=== PATIENT | female | born 1935 | race Caucasian/White ===

== ENCOUNTER 2018-08-10 11:32 | Emergency (ER) | payer MEDICARE ==
[~2018-08-10] VITALS: Ht 170.1 cm; Wt 83.9 kg
[~2018-08-10 11:32] MED LIST: ACULAR 3ML 3 ML5 ML OPH; ASPIRIN81 M1 PO; ATIVAN0.5 MG PO; CEFTIN500 M1 PO; CIPRO500 MG PO; CLINDAMYCIN HC300 MG PO; COMPAZINE10 MG PO; EVISTA60 MG PO; LISINOPRIL10 MG PO; LOPRESSOR50 M1 PO; LOVASTATIN40 MG PO; MACROBID100 M1 PO; OCUFLOX 5 ML5 M1 OPH; ONDANSETRON H2 MG/ML IV; PERCOCET 325 MG1 TA2 PO; PERCOCET 325 MG1 TA5 PO; PERCOCET 325 MG1 TA7 PO; PHENERGAN25 M1 PO; PLAVIX75 MG PO; PRED FORTE 5 ML5 ML OPH; PRESERVISION1 SGL PO; PRILOSEC20 M1 PO; PRINIVIL5 M1 PO; PROTONIX40 MG PO; ZOLOFT25 MG PO
[2018-08-10 12:03] LABS: BASO % 0.4 % (0.0-1.0); EOS % 0.4 % (1.0-4.0); HEMATOCRIT 41.4 % (37.0-47.0); HEMOGLOBIN 13.1 g/dl (12.0-16.0); LYMPH # 1.5 10*3/uL (1.3-4.4); MEAN CELL VOLUME 95.2 fl (81.0-99.0); MEAN CORPUSCULAR HGB 30.1 pg (27.0-31.0); MEAN CORPUSCULAR HGB CONC 31.6 g/dl (33.0-37.0); MEAN PLATELET VOLUME 9.9 fl (9.6-12.3); MONO # 0.5 10*3/uL (0.1-1.0); MONO % 7.1 % (3.0-9.0); NEUT # 4.7 10*3/uL (2.3-7.9); NEUT % 69.7 % (47.0-73.0); PLATELET COUNT AUTOMATED 180 10*3/uL (130-400); RED BLOOD COUNT 4.35 10*6/uL (4.10-5.10); RED CELL DISTRI WIDTH 12.8 % (0-14.5); WHITE BLOOD COUNT 6.7 10*3/uL (4.8-10.8)
[2018-08-10 12:18] LABS: ALBUMIN 3.4 gm/dl (3.1-4.5); CREATININE 1.83 mg/dL (0.55-1.02); POTASSIUM 3.6 mmol/L (3.5-5.1); TOTAL PROTEIN 7.3 gm/dL (6.4-8.2)
[2018-08-10 13:54] LABS: BILIRUBIN NEGATIVE (NEGATIVE); BLOOD NEGATIVE (NEGATIVE); CLARITY CLEAR (CLEAR); COLOR YELLOW (YELLOW); GLUCOSE NEGATIVE (NEGATIVE); KETONE NEGATIVE (NEGATIVE); LEUKO ESTERASE 1+ (NEGATIVE); NITRITE NEGATIVE (NEGATIVE); SPECIFIC GRAVITY <= 1.005 (1.005-1.030); UROBILINOGEN 0.2 E.U./dl (0.2-1.0)
[2018-08-10 14:13] LABS: BACTERIA 2+; RBC 0-2 rbc/hpf (0-2)
[2018-08-10 15:06] VITALS: BP 155/78
[2018-08-10] MEDS ORDERED: MACROBID100 M1 PO (16:10)
[2018-08-10] MEDS ORDERED: ZOFRAN4 MG PO (16:13)
[2018-10-15] MEDS ORDERED: FOSAMAX70 M1 PO (09:13)
[2018-10-15] MEDS ORDERED: BENADRYL25 M2 PO (09:17)
[2018-10-15] MEDS ORDERED: HEMMOREX-HC25 MG R (09:17)
[2018-10-15] MEDS ORDERED: NORCO 5-325 TA1 EACH PO (09:18)
[2018-10-15] MEDS ORDERED: TUMS200 MG PO (09:19)
[2018-10-15] MEDS ORDERED: TYLENOL325 M1 PO (09:20)
== END 2018-08-10 16:17 ==
LOC: ED 11:32
PROVIDERS: Emergency Medicine
DX: N39.0 Urinary tract infection, site not specified (principal); M19.90 Unspecified osteoarthritis, unspecified site; Z88.0 Allergy status to penicillin; Z91.040 Latex allergy status; Z88.2 Allergy status to sulfonamides; Z88.6 Allergy status to analgesic agent; Z88.4 Allergy status to anesthetic agent; Z79.899 Other long term (current) drug therapy; Z79.82 Long term (current) use of aspirin; Z87.440 Personal history of urinary (tract) infections

== ENCOUNTER 2018-08-27 14:20 | Inpatient (IN) | payer MEDICARE ==
[~2018-08-27] VITALS: Ht 167.6 cm; Wt 85.3 kg
--- NOTE | ~2018-08-27 | WRIGHTHP ---
[place], [place] PATIENT HISTORY AND PHYSICAL EXAM NAME: [facility]INO [facility] [id number] UNIT #: [id number] ROOM: [facility] DOCTOR: HARVEY LENNON MD BIRTHDATE: [birth year] DOS: 08/27/2018 HISTORY OF PRESENT ILLNESS: The patient is 82 years old, comes in with complaints of abdominal pain. The patient was seen in the Emergency Room a few days ago with similar pain and was advised admission, but refused. She came back because she was extremely tired and weak and was unable to have a bowel movement. She denies having any chest pains, palpitations, does not have any fever or chills, does not have any nausea, any emesis, does not have any diarrhea. The patient states that her hemorrhoids are pretty bothersome, and she has not had any bowel movement for 2 weeks. PAST MEDICAL HISTORY: Significant for; 1. Benign hypertension. 2. Abdominal aortic aneurysm. 3. Major depression. 4. Type 2 diabetes mellitus. 5. Last hospitalization in 10/2015 after a fall. 5. Failure to thrive. 6. Transient ischemic attack. 7. Degenerative joint disease. 8. Severe diverticulosis. 9. Mixed hyperlipidemia. MEDICATIONS: Medications she is on are Plavix 75, lisinopril 10, lorazepam 1 mg at bedtime, lovastatin 40, metoprolol 50, Protonix 40, Evista 60, sertraline 50, vitamin, and PreserVision. SOCIAL HISTORY: Nonsmoker. PHYSICAL EXAMINATION: GENERAL: She is awake and alert and oriented, upset from being here. VITAL SIGNS: Blood pressure is 150/72, pulse of 86, respirations 20, and temperature 97.3. LUNGS: Clear. HEART: Regular. ABDOMEN: Obese, soft. EXTREMITIES: Without any edema. ASSESSMENT AND PLAN: 1. Obstipation. The patient started on medications. CT scan does not show any evidence of diverticulosis. 2. Acute kidney injury. The patient will be started on IV fluids, possibly dehydrated from a poor p.o. intake. Her mouth is very dry and coated, encouraged to increase the p.o. intake. 3. Hemorrhoids, Anusol suppository was ordered. Right now, we will hold off on GI consultation and colonoscopy. 4. Adult failure to thrive, may require short-term placement. We will see how she progresses in the next 24 hours before consultation is written. [place], [place] PATIENT HISTORY AND PHYSICAL EXAM NAME: CHRISTA VALENTINO UNIT #: [id number] ROOM: [facility] DOCTOR: HARVEY LENNON MD BIRTHDATE: [birth year] HARVEY LENNON MD CM:HISPHYS:PATIENT HISTORY AND PHYSICAL EXAMINATION 1001 HARVEY LENNON MD 08/28/18 1134 interface
--- NOTE | ~2018-08-27 | CON ---
[place], [place] REPORT OF CONSULTATION NAME: CHRISTA VALENTINO UNIT #: [id number] ROOM: 505 DOCTOR: OCTAVIO CHAANN-MARIE BIRTHDATE: [birth year] DOS: 08/30/2018 GASTROENDOSCOPIC CONSULTATION HISTORY OF PRESENT ILLNESS: This lady is 82-year-old with multiple medical issues among which are nausea, vomiting, constipation, suspected colitis, inflammatory response. I have been asked for assessment of the patient regarding colonoscopy, endoscopy. PAST MEDICAL HISTORY: Obesity, depression, systemic hypertension, failure to thrive, degenerative joint disease, diverticulosis, hyperlipidemia, constipation, and diabetes mellitus. ALLERGIES: TO MULTIPLE MEDICATIONS; SULFA, IVP DYE, SURGICAL TAPE, CODEINE, PENICILLIN AND ROPIVACAINE. MEDICATIONS: List at home has been reviewed. She has been on aspirin as well and clopidogrel. MEDICAL ISSUES: Also parenchymal hemorrhage, osteoarthritis undifferentiated, abdominal pain, fall at home. PAST SURGICAL HISTORY: Lithotripsy, podiatric surgery, rotator cuff, cholecystectomy, appendectomy, T and A, and hysterectomy. SOCIAL HISTORY: Nonsmoker, nonalcohol consumer. FAMILY HISTORY: Hypertension. REVIEW OF SYSTEMS: HEENT: Denies double vision, blurred vision. RESPIRATORY: Denies shortness of breath. CARDIOVASCULAR: Denies chest pain. DIGESTIVE SYSTEM: Constipation, colitis, nausea, vomiting, diverticulosis. PHYSICAL EXAMINATION: VITAL SIGNS: Stable. HEENT: Head normocephalic, nontraumatic. Mouth and buccal mucosa benign. NECK: Supple, no thyromegaly, no cervical lymphadenopathy. CHEST: Symmetric anatomy, equal expansion. No wheeze, no rhonchi. HEART: Normal sinus rhythm, no gallop, no murmur. ABDOMEN: Soft. No hepato-organomegaly. Bowel sounds present. No pulsatile mass. Obese. EXTREMITIES: No cyanosis, no pedal edema. Complaining of left hip pain. NEUROLOGIC: Alert, oriented to time, place, person. LABORATORY DATA: Labs reviewed. Records reviewed. The latest findings, CT scan of the abdomen reassessed. Abdominal aortic aneurysm seen, no retroperitoneal hemorrhage or diverticulosis, no bowel obstruction, constipation history. Urine culture negative. CBC; white blood cell 58, H and H 12 and 37. [place], [place] REPORT OF CONSULTATION NAME: CHRISTA VALENTINO UNIT #: [id number] ROOM: [facility] DOCTOR: OCTAVIO CHA,ANN-MARIE BIRTHDATE: [birth year] Lactic acid has been normal. Pelvic x-ray, no acute abnormality. KUB, no acute process. Comprehensive metabolic panel, BUN and creatinine elevation to 16 and 1.3 with GFR of 45. Electrolytes balanced otherwise. PLAN AND DISCUSSION: We are going to proceed with an investigation of nausea, vomiting, colonic concern and constipation issues. ANN-MARIE CUNNINGHAM MD CM:CONSTR:REPORT OF CONSULTATION 1410 08/31/18 0524 interface
--- NOTE | ~2018-08-27 | O ---
[place], [place] OPERATIVE NOTE NAME: CHRISTA VALENTINO UNIT #: [id number] ROOM: 505 DOCTOR: ANN-MARIE CUNNINGHAM MD BIRTHDATE: [birth year] DOS: 08/30/2018 INDICATION FOR PROCEDURE: The patient has presented with constipation, abdominal pain, undergoing investigation, concerned about abnormal labs and records PROCEDURE: Today's procedure part of investigation is panendoscopy and colonoscopy. PREMEDICATION: Propofol. SCOPE: Olympus forward-viewing gastroscope Q10 video. REPORT: After putting the patient in left lateral position and application of lubricant to the scope, the scope was introduced. Thereafter, under direct vision, advanced to the length of colon without difficulty. Evidence of diverticulosis scatteredly noticed. There is no colitis. No concerning ischemia. Base of the cecum explored, appendiceal orifice identified, ileocecal valve was defined. Scope was gradually withdrawn. The patient extubated and tolerated the procedure well. IMPRESSION: Diverticulosis, scatteredly. PLAN AND DISCUSSION: The patient has been scheduled for EGD that is going to be organized. PROCEDURE #2, PANENDOSCOPY: PROCEDURE: Today's procedure part of investigation is panendoscopy. PREMEDICATION: Propofol. SCOPE: Olympus forward-viewing gastroscope Q10 video. REPORT: After putting the patient in left lateral position, application of lubricant to the scope, the scope was introduced; thereafter, under direct visualization, I advanced through the length of esophagus without difficulty. Mild gastritis seen. No biopsy obtained due the fact the patient is on aspirin and Plavix. Duodenal patency assured. The patient extubated, tolerated the procedure well. IMPRESSION: Gastritis. We are going to hiatal hernia. PLAN AND DISCUSSION: We are going to continue with Protonix usage. [place], [place] OPERATIVE NOTE NAME: CHRISTA VALENTINO UNIT #: [id number] ROOM: 505 DOCTOR: ANN-MARIE CUNNINGHAM MD BIRTHDATE: [birth year] ANN-MARIE CUNNINGHAM MD CM:OPRECORD:OPERATIVE NOTE [id number] ANN-MARIE CUNNINGHAM MD 09/05/18 0813 interface
--- NOTE | ~2018-08-27 | PR ---
[place], [place] PROGRESS NOTE NAME: CHRISTA VALENTINO UNIT #: [id number] ROOM: 505 DOCTOR: CINTHIA ACOSTA MD BIRTHDATE: [birth year] DOS: 09/01/2018 SUBJECTIVE: The patient wanting to go to [facility] for stenting of the abdominal aortic aneurysm. She has changed her mind about the procedure, which was discussed with her yesterday. OBJECTIVE: GENERAL APPEARANCE: The patient is alert and oriented x 3, in no visible distress. Obesity. VITAL SIGNS: Blood pressure 120/50, heart rate of 61 beats per minute, afebrile, breathing 18 times per minute. HEENT AND NECK: Exam within normal limits. CARDIOVASCULAR SYSTEM: Heart rate is regular in rate and rhythm. S1 and S2 normally audible. LUNGS: Clear to auscultation. ABDOMEN: Soft, nontender. No obvious organomegaly. Bowel sounds are present. EXTREMITIES: Without significant cyanosis or edema. IMPRESSION: 1. The patient with large abdominal aortic aneurysm measuring 6.1 x 6.1 x 8.8 cm, which requires urgent surgical consultation, which is not available at [facility]. Situation was discussed with the patient yesterday and she had decided against any intervention, but today she is requesting to be sent to [facility] for possible stenting. The patient's daughter, Lisa, intervened and she does not want the patient to be transferred today and instead she will discuss the case with Dr. Carmel Christianson tomorrow before deciding on further management of the abdominal aortic aneurysm. 2. Acute constipation, resolved with laxatives. 3. Left lower quadrant pains, mostly muscular, have improved, and they are apparently related to a recent fall and injury. 4. Adult failure to thrive. The patient working with physical therapy. 5. Benign essential hypertension. Blood pressures are being monitored and treated. 6. Type 2 diabetes mellitus. Blood sugars are being monitored and treated. 7. Major depression, recurrent, mild, treated and controlled with Zoloft. 8. Mixed hyperlipidemia, being treated with simvastatin. [place], [place] PROGRESS NOTE NAME: CHRISTA VALENTINO UNIT #: [id number] ROOM: 505 DOCTOR: CINTHIA ACOSTA MD BIRTHDATE: [birth year] CINTHIA ACOSTA MD CM:GREER [id number] CINTHIA ACOSTA MD 09/02/18 0740 interface
--- NOTE | ~2018-08-27 | DS ---
[place], [place] DISCHARGE SUMMARY NAME: CHRISTA VALENTINO UNIT #: [id number] ROOM: 505 DOCTOR: HARVEY LENNON MD BIRTHDATE: [birth year] DOS: HOSPITAL COURSE: The patient is 82 years old patient, who comes in with complaints of abdominal pain. Please refer to H and P for details. She was admitted, was found to be obstipated and was placed on medications. Dr. Hall was consulted. A CT of the abdomen and pelvis was done, which showed a large aneurysm about [address] Hall did not take her for a colonoscopy. The patient has had better bowel movements. She also has acute kidney injury and she was given IV fluids and kidney functions are much improved and is down to 1.15 with a GFR of 45, stage IIIB kidney disease. White cell count is normal. Urine culture showed no bacterial growth. The patient is extremely weak and would benefit from placement of short term for rehabilitation and she has agreed to go to a facility close by. Arrangements were made to go. Social service was consulted and she has been accepted at [facility]. Plans to arrange for discharge today. She does have a large aneurysm and for this, she will need to be seen by [facility]. We will make arrangements. Discussed the case in detail with the patient's daughter. Office will make arrangements for her to see Dr. Matheus Cohen at [facility]. PT/OT consult. Regular diet. DISCHARGE MEDICATIONS: Colace 100 b.i.d., MiraLax 17 grams b.i.d., Anusol suppository at bedtime for 7 days, aspirin 81 daily, lorazepam 0.5 mg at bedtime p.r.n., metoprolol 50 daily, Evista 60 daily, lovastatin 40 daily, PreserVision 1 tablet twice a day, Plavix 75 daily, Protonix 40 daily, lisinopril 10 daily, sertraline 50 daily, Zofran 4 mg q. 4 hours p.r.n. HARVEY LENNON MD CM:DISCHARG [id number] HARVEY LENNON MD 09/02/18 0929 interface
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
--- NOTE | ~2018-08-27 | PR ---
[place], [place] PROGRESS NOTE NAME: CHRISTA VALENTINO UNIT #: [id number] ROOM: 505 DOCTOR: HARVEY LENNON MD BIRTHDATE: [birth year] DOS: 08/27/2018 SUBJECTIVE: The patient has multitude of complaints. She has gaseous distention of the abdomen, discomfort and not had bowel movements, tiredness. She did not sleep. She is nauseous. She does not have any chest pains or palpitations. OBJECTIVE: VITAL SIGNS: Blood pressure is 157/72, pulse of 89, respirations 18, temperature 97.8. LUNGS: Diminished breath sounds, clear. HEART: Regular. ABDOMEN: Obese, soft, nontender. EXTREMITIES: Without any edema. ASSESSMENT AND PLAN: 1. Adult failure to thrive, awaiting short-term placement to rehabilitation. 2. Abdominal pain with constipation and obstipation. We will ask Dr. Hall for a colonoscopy. 3. Benign hypertension, controlled. Discussed with the patient and nurses in detail. We will talk to the patient's daughter today. HARVEY LENNON MD CM:PNTRANS [id number] HARVEY LENNON MD 09/11/18 0836 interface
--- NOTE | ~2018-08-27 | PR ---
[place], [place] PROGRESS NOTE NAME: CHRISTA VALENTINO UNIT #: [id number] ROOM: 505 DOCTOR: HARVEY LENNON MD BIRTHDATE: [birth year] DOS: SUBJECTIVE: The patient is doing better, does not have any new complaints. She is finally deciding to have the aneurysm taken care of. OBJECTIVE: VITAL SIGNS: Blood pressure is 128/52, pulse of 60-70, respirations 69, respirations 20, temperature 97.6. LUNGS: Clear. HEART: Regular. ABDOMEN: Obese, soft, nontender except from some minimal discomfort in the left lower quadrant, which is chronic. EXTREMITIES: Without any edema. ASSESSMENT AND PLAN: 1. Obstipation, which is resolved. 2. Adult failure to thrive, awaiting placement. Plan is to discharge. 3. Infrarenal aneurysm, 6-8 cm. Discussed with the patient as well as her daughter on Sunday. The plan is to discharge her to [facility] today and for rehab and we will make arrangements for her to see Vascular Surgery in [facility]. HARVEY LENNON MD CM:PNTRANS [phone] HARVEY LENONN MD 09/02/18 1228 interface
--- NOTE | ~2018-08-27 | PR ---
[place], [place] PROGRESS NOTE NAME: CHRISTA VALENTINO UNIT #: [id number] ROOM: 505 DOCTOR: HARVEY LENNON MD BIRTHDATE: [birth year] DOS: 08/30/2018 SUBJECTIVE: The patient is about the same, does not have any new complaints. We are waiting for Dr. Hall's opinion on colonoscopy, discussed with the patient's daughter in detail yesterday. OBJECTIVE: VITAL SIGNS: Pressure is 150/70, pulse of 79, respirations 18, temperature 97.5. LUNGS: Clear. HEART: Regular. ABDOMEN: Obese, soft, nontender. Most of the discomfort that she complains of is in the left hip. Extremities without any edema. CT of the abdomen and pelvis shows this large infrarenal AAA, which we have known for many years now, has slowly increased in size, but she is not an operative candidate. Obstipation, awaiting a colonoscopy. Adult failure to thrive, awaiting placement to rehabilitation. HARVEY LENNON MD CM:PNTRANS [phone] HARVEY LENNON MD 08/31/18 0636 interface
[~2018-08-27 14:20] MED LIST changes: +ZOFRAN4 MG PO
[2018-08-27 14:23] VITALS: BP 156/71
[2018-08-27 15:07] LABS: BASO % 0.4 % (0.0-1.0); EOS % 0.4 % (1.0-4.0); HEMATOCRIT 40.4 % (37.0-47.0); HEMOGLOBIN 12.9 g/dl (12.0-16.0); LYMPH # 1.9 10*3/uL (1.3-4.4); LYMPH % 26.1 % (27.0-41.0); MEAN CELL VOLUME 92.7 fl (81.0-99.0); MEAN CORPUSCULAR HGB 29.6 pg (27.0-31.0); MEAN CORPUSCULAR HGB CONC 31.9 g/dl (33.0-37.0); MONO # 0.6 10*3/uL (0.1-1.0); MONO % 7.7 % (3.0-9.0); NEUT # 4.7 10*3/uL (2.3-7.9); NEUT % 65.3 % (47.0-73.0); PLATELET COUNT AUTOMATED 168 10*3/uL (130-400); RED BLOOD COUNT 4.36 10*6/uL (4.10-5.10); RED CELL DISTRI WIDTH 12.8 % (0-14.5); WHITE BLOOD COUNT 7.2 10*3/uL (4.8-10.8)
[2018-08-27 15:44] LABS: BILIRUBIN NEGATIVE (NEGATIVE); BLOOD NEGATIVE (NEGATIVE); CLARITY SL CLOUDY (CLEAR); GLUCOSE NEGATIVE (NEGATIVE); KETONE NEGATIVE (NEGATIVE); LEUKO ESTERASE 2+ (NEGATIVE); NITRITE NEGATIVE (NEGATIVE); SPECIFIC GRAVITY <= 1.005 (1.005-1.030); UROBILINOGEN 0.2 E.U./dl (0.2-1.0)
[2018-08-27 15:53] LABS: COLOR YELLOW (YELLOW)
[2018-08-27 15:55] LABS: WBC 16-20 wbc/hpf (0-5)
[2018-08-27 15:56] LABS: BACTERIA 3+
[2018-08-27 16:00] VITALS: BP 135/65
[2018-08-27 16:30] VITALS: BP 135/60; BP 135/68
--- NOTE | 2018-08-27 16:31 | NUR ---
A 82, admitted to , under the services of HARVEY Godoy MD with a diagnosis of LEFT LOWER ABD PAIN. Chief complaint is ABD PAIN WITH DIARRHEA. Patient arrived via ambulatory from ER. Monitor applied. Initial assessment completed. Vital signs taken and recorded. HARVEY GODOY MD notified of admission to the unit. Orders received. See assessment for past medical history, medications and allergies. Patient and/or family oriented to unit. [facility] visitation policy reviewed. Clothing/patient valuable form completed. DUNIA VILLALOBOS
--- NOTE | 2018-08-27 17:15 | NUR ---
MED REC UPDATED PER PT
[2018-08-27 17:31] LABS: ALBUMIN 3.7 gm/dl (3.1-4.5); CREATININE 1.37 mg/dL (0.55-1.02); POTASSIUM 3.8 mmol/L (3.5-5.1); TOTAL PROTEIN 7.4 gm/dL (6.4-8.2)
--- NOTE | 2018-08-27 18:42 | NUR ---
PT REFUSING MAG CITRATE AT THIS TIME PT HAD 2 BMS SINCE HERE
[2018-08-27 20:00] VITALS: BP 161/68
--- NOTE | 2018-08-27 22:01 | NUR ---
DR LENNON AWARE OF PATIENT C/O ABD PAIN. ORDERS TAKEN
--- NOTE | 2018-08-27 22:31 | NUR ---
MEDICATED WITH PRN TYLENOL FOR C/O ABD PAIN
[2018-08-28] VITALS: BP 144/71
[2018-08-28 04:00] VITALS: BP 154/70
[2018-08-28 06:40] LABS: BASO % 0.5 % (0.0-1.0); EOS # 0.1 10*3/uL (0.0-0.4); EOS % 1.7 % (1.0-4.0); HEMATOCRIT 37.4 % (37.0-47.0); LYMPH # 1.8 10*3/uL (1.3-4.4); LYMPH % 30.7 % (27.0-41.0); MEAN CELL VOLUME 93.5 fl (81.0-99.0); MEAN CORPUSCULAR HGB CONC 32.1 g/dl (33.0-37.0); MEAN PLATELET VOLUME 10.7 fl (9.6-12.3); MONO # 0.6 10*3/uL (0.1-1.0); MONO % 10.4 % (3.0-9.0); NEUT # 3.3 10*3/uL (2.3-7.9); NEUT % 56.4 % (47.0-73.0); PLATELET COUNT AUTOMATED 142 10*3/uL (130-400); RED CELL DISTRI WIDTH 12.9 % (0-14.5); WHITE BLOOD COUNT 5.8 10*3/uL (4.8-10.8)
[2018-08-28 06:45] LABS: CREATININE 1.24 mg/dL (0.55-1.02); POTASSIUM 3.8 mmol/L (3.5-5.1)
[2018-08-28 08:00] VITALS: BP 150/72
--- NOTE | 2018-08-28 08:51 | NUR ---
PATIENT MEDICATED WITH PO TYLENOL PER PRN ORDER FOR C/O LOWER ABD PAIN. WILL MONITOR EFFECTIVENESS.
--- NOTE | 2018-08-28 09:00 | NUR ---
Cake Press Operator in to talk to patient. Patient states lives at home alone with her family checking in on her. There are 3 steps in the home. Physician: Dr. Carmel Christianson [facility]: [facility] services: [facility] currently Patient's level of ADLs: MINIMAL ASSIST Patient has working utilities: yes DME: cane, walker, chair lift Follow-up physician's appointment after d/c: she prefers to make her own follow up appt after discharge Does patient want to access PORTAL?: no Discharge plan discussed with patient. She lives at home alone with her family checking in on her. She is independent in her ADLs and ambulates with either a walker or a cane. She has 3 steps to get into the house then she has a chair lift. Discussed home health care services and she states she currently has [facility] and would like to resume those services upon discharge if she is discharged to home. Discussed short term SNF and she is agreeable. When given a list of facilities, she chose [facility] then [facility]. environmental planner notified. VIKAS ARAUZ
--- NOTE | 2018-08-28 09:15 | NUR ---
IN TO SEE PATIENT.
[2018-08-28 12:00] VITALS: BP 107/88
--- NOTE | 2018-08-28 15:45 | NUR ---
PT MEDICATED WITH PO TYLENOL PER PRN ORDER FOR C/O LOWER ABD PAIN. WILL MONITOR EFFECTIVENESS. CALL LIGHT WITHIN REACH.
[2018-08-28 16:00] VITALS: BP 162/77
[2018-08-28 20:00] VITALS: BP 144/63
[2018-08-29] VITALS: BP 159/74
[2018-08-29 08:00] VITALS: BP 157/72
--- NOTE | 2018-08-29 11:08 | NUR ---
CT PREP INITIATED AT THIS TIME.
[2018-08-29 12:00] VITALS: BP 140/53
--- NOTE | 2018-08-29 12:00 | NUR ---
Aircraft Fueler in to see patient. No new needs or request at this time. When medically stable and accepted she will be discharged to [facility]. white washer piler following.
--- NOTE | 2018-08-29 12:38 | NUR ---
patient requesting referral to [facility], contacted facility and faxed referral. Will fax physical therapy eval when available. waiting on review/acceptance.
--- NOTE | 2018-08-29 15:46 | NUR ---
NOTIFIED REGARDING CT RESULTS. NO NEW ORDERS. CALLED WITH CT RESULTS. NO ANSWER AT THIS TIME. LEFT MESSAGE. AWAITING RETURN PHONE CALL.
--- NOTE | 2018-08-29 15:48 | NUR ---
NOTIFIED REGARDING CT RESULTS. NO NEW ORDERS. THIS NURSE CALLED WITH CT RESULTS. NO ANSWER. LEFT MESSAGE. AWAITING RETURN PHONE CALL.
[2018-08-29 16:00] VITALS: BP 150/72
[2018-08-29 20:00] VITALS: BP 172/72
[2018-08-30] VITALS (9 sets, daily range): BP systolic 130–184; BP diastolic 50–84
--- NOTE | 2018-08-30 08:45 | NUR ---
ATTEMPTED TO CALL DR. CUNNINGHAM, CELL PHONE WENT STRAIGHT TO VOICEMAIL. WILL ATTEMPT TO CALL BACK. DR. LENNON WANTED DR. CUNNINGHAM CALLED TO SEE IF HE WAS GOING TO DO A COLONOSCOPY ON PATIENT.
--- NOTE | 2018-08-30 09:00 | NUR ---
Sign Builder in to see patient. No new needs or request at this time. When medically stable and she will be discharged to [facility]. conference planner following.
--- NOTE | 2018-08-30 09:22 | NUR ---
PHYSICAL THERAPY PAtient evalauted on 4, full evaluation to follow. Continue with PT as per plan of care with fall, AAA and acute debility precautions. Will require SNF. Patient is high complexity via chart review, tests and evaluation: 06392. Thank you for this referral. Pauline Maguire,PT
--- NOTE | 2018-08-30 09:24 | NUR ---
Occupational Therapy evaluation completed on 5 with full eval to follow. Precautions include fall risk; bed alarm, unsteady with cane in standing, large AAA needing surgical consult, assist w/ ADLs and mobility. Patient is moderate complexity level 64062 via chart review, testing and evaluation. Recommend OT per POC and SNF upon d/c to enable return home alone at independent level. Thank you for this referral. Shabana Knapp OTR/l
--- NOTE | 2018-08-30 09:59 | NUR ---
SPOKE TO DR. CUNNINGHAM, WANTS PATIENT TO RECEIVE FLEET ENEMA FOLLOWED BY TAP WATER ENEMA UNTIL CLEAR, EGD/COLO THIS AFTERNOON
--- NOTE | 2018-08-30 12:09 | NUR ---
NURSING STUDENTS ADMINISTERED FLEET ENEMA AND TAP WATER ENEMA UNTIL CLEAR. PER NURSING STUDENTS THEY ADMINISTERED 4 TAP WATER ENEMAS, WATER COMING BACK OUT CLEAR, NO SOLID FLAKES NOTED.
--- NOTE | 2018-08-30 13:30 | NUR ---
Patient accepted to the [facility] exemption complete. Requires a 3 night stay. Patient is ok to go on Sunday08/31/18 if medically stable for discharge.
--- NOTE | 2018-08-30 14:07 | NUR ---
PT SENT TO EG/DCOLONOSCOPY VIA BED
--- NOTE | 2018-08-30 16:08 | NUR ---
REPORT RECEIVED FROM SURGERY, PT TO BE RETURNING TO ROOM
--- NOTE | 2018-08-30 16:28 | NUR ---
RETURN FROM EGD/COLO VIA BED. PT HELPED UP TO BSC. NO REQUESTS/COMPLAINS AT THIS TIME
[2018-08-31] VITALS: BP 131/69
[2018-08-31 06:32] LABS: BASO % 0.6 % (0.0-1.0); EOS # 0.2 10*3/uL (0.0-0.4); EOS % 3.3 % (1.0-4.0); HEMATOCRIT 36.8 % (37.0-47.0); HEMOGLOBIN 11.6 g/dl (12.0-16.0); LYMPH # 1.8 10*3/uL (1.3-4.4); LYMPH % 32.8 % (27.0-41.0); MEAN CELL VOLUME 95.6 fl (81.0-99.0); MEAN CORPUSCULAR HGB 30.1 pg (27.0-31.0); MEAN CORPUSCULAR HGB CONC 31.5 g/dl (33.0-37.0); MEAN PLATELET VOLUME 10.7 fl (9.6-12.3); MONO # 0.5 10*3/uL (0.1-1.0); MONO % 9.8 % (3.0-9.0); NEUT # 2.9 10*3/uL (2.3-7.9); NEUT % 53.1 % (47.0-73.0); PLATELET COUNT AUTOMATED 138 10*3/uL (130-400); RED BLOOD COUNT 3.85 10*6/uL (4.10-5.10); RED CELL DISTRI WIDTH 13.1 % (0-14.5); WHITE BLOOD COUNT 5.4 10*3/uL (4.8-10.8)
[2018-08-31 06:55] LABS: CREATININE 1.15 mg/dL (0.55-1.02); POTASSIUM 3.7 mmol/L (3.5-5.1)
[2018-08-31 08:00] VITALS: BP 132/59
[2018-08-31 12:00] VITALS: BP 135/57
[2018-08-31 16:00] VITALS: BP 153/63
--- NOTE | 2018-08-31 17:10 | NUR ---
PT RESTING IN BED AFTER AMBULATING IN THE [place] WITH ASSISTANCE. DR. ACOSTA TO THE FLOOR. VSS. DENIES SOB OR PAIN AT THIS TIME.
--- NOTE | 2018-08-31 17:45 | NUR ---
PT AND DAUGHTER AGREEABLE TO AG. DAUGHTER PREFERABLE TO DR TAMI WONG, DR MALONE, OR DR GONCALVES.
[2018-08-31 20:00] VITALS: BP 124/51; BP 139/60
[2018-09-01 08:00] VITALS: BP 144/53
--- NOTE | 2018-09-01 10:42 | NUR ---
DAUGHTER CALLED IN REGARDING POSSIBLE TRANSFER TO [facility] FOR VASCULAR SURGEON. PATIENT AND DAUGHTER WANT TO WAIT TILL TOMORROW TO SPEAK WITH REGARDING PLAN OF CARE. WILL NOTIFY WHEN HE COMES IN.
--- NOTE | 2018-09-01 11:05 | NUR ---
PT MEDICATED WITH PO TYLENOL PER PRN ORDER FOR C/O RIGHT KNEE PAIN. WILL MONITOR EFFECTIVENESS. CALL LIGHT WITHIN REACH.
[2018-09-01 12:00] VITALS: BP 145/78
[2018-09-01 16:00] VITALS: BP 119/50
--- NOTE | 2018-09-01 17:30 | NUR ---
IN TO SEE PATIENT.
--- NOTE | 2018-09-01 17:35 | NUR ---
AWARE OF PATIENTS REFUSAL FOR TRANSFER THIS EVENING. PATIENT AND PATIENT'S DAUGHTER WILL SPEAK WITH TOMORROW REGARDING PLAN OF ACTION.
[2018-09-01 20:00] VITALS: BP 150/77
--- NOTE | 2018-09-01 21:30 | NUR ---
PRN ATIVAN AND TYLENOL GIVEN PER PT REQUEST. WILL HARJIT.
[2018-09-02] VITALS: BP 128/52; BP 150/77
[2018-09-02 08:00] VITALS: BP 156/70
[2018-09-02] MEDS ORDERED: ANUSOL HC,ANUCO25 MG PO (08:28)
[2018-09-02] MEDS ORDERED: MIRALAX17 GM PO (08:28)
[2018-09-02] MEDS ORDERED: COLACE100 MG PO (08:28)
--- NOTE | 2018-09-02 08:50 | NUR ---
OT NOTE Pt was seen this A.M. 1:1 for 15 minute OT session. Upon arrival pt was sitting upright on the bedside commode, pt identified by name and and had complaints of "little" L side abdominal pain. Pt completed sit to stand transfer from bedside commode with CGA, clothing management completed with CGA and toilet hygiene completed with CGA while standing. Pt completed functional mobility around the room with CGA and use of w/w for UE support. Pt required verbal prompts throughout to slow down due to being impulsive, keeping the walker on the ground versus carrying, correcting her posture, and walker navigation in tight spaces. Pt then returned to the EOB where she sat for a seated rest break due to fatigue. Pt completed sit to stand from bed level with CGA where she stood with CGA and no UE support to challenge her dynamic standing balance needed for increased I in self caret asks and functional transfers. Pt was able to maintain F+ standing balance throughout while crossing midline, reaching over all planes, and weight shifting. Pt was left sitting upright on the EOB with call light in hand, tray table in place, and phone in reach. Continue with rec D.C plan to SNF. FRED Ovalle/Wiley
--- NOTE | 2018-09-02 09:44 | NUR ---
PHYSICAL THERAPY Patient seen this am 1:1 for therapy visit and was sitting up EOB upon therapist arrival. Patient stated she had just got off the [facility] and reports mild L side abdomial pain from recent fall at home. Patient transfers sit to stand, MIN A and ambulates with use of wh walker, 40'x 1, Min/CGA, demonstrating very slow, cautious gait pattern. Patient also very unsteady during 90/180 degree turns and retuned to EOB sit with mild fatigue. Patient also ambulated 15'x [address] cane, Min A, demonstrating very unsteady gait pattern and poor upright posture, around bed to other side EOB sit as breakfast arrived. Patient remained EOB with call light, tray table and telephone. Will continue per POC as tolerated, total treatment time 16 minutes. Sonny Sparks, ASSEMBLY SUPERVISOR
--- NOTE | 2018-09-02 10:53 | NUR ---
Contacted daughter to let her know patient is discharged to the [facility]. Daughter stated she will transport but she won't be here until 6 PM. Notified sales audit clerk on 5th floor. Daughter asked which building patient was going to, I explained she is going to the [facility]; she questioned why not the rehab suites, I told her it was full and they have not had any availability. She had multiple complaints about the care she received here at the hospital. "patient was admitted on Sunday and never recieved a bath, which is her basic need." "Physical therapy was ordered on the and they didn't get to her until today"! I told her I could forward her concerns to the supervisor tan room, she stated she has already done that. She will be here between 6 pm and 7pm to pick her up.
--- NOTE | 2018-09-02 11:00 | NUR ---
Corporate Travel Agent in to see patient. Discussed with patient discharge planning to [facility] and she verbalized an understanding. She states her clothes will be here at the hospital around noon today. planner notified. When medically stable she will be discharged to [facility].
[2018-09-02 12:00] VITALS: BP 148/71
--- NOTE | 2018-09-02 13:40 | NUR ---
TYLENOL EFFECTIVE FORM RELIEF OF SLIGHT HEADACHE
[2018-09-02 16:00] VITALS: BP 135/95
--- NOTE | 2018-09-02 19:48 | NUR ---
PT IS DISCHARGED AT THIS TIME. PT LEFT FLOOR ACCOMPANIED BY HER DAUGHTER. IV WAS DISCONTINUED.
--- NOTE | 2018-09-02 20:13 | NUR ---
REPORT WAS GIVEN TO RADHA AT THE [facility]
--- NOTE | 2018-09-03 07:52 | NUR ---
PHYSICAL THERAPY CO-SIGN I approve of the Phyical Therapy notes written above. HEBERT READ PT
--- NOTE | 2018-09-03 08:01 | NUR ---
OCCUPATIONAL THERAPY CO-SIGN I approve of the Occupational Therapy notes written above. JUAN CARLOS NETTLES OTR/Wiley
[2018-10-15] MEDS ORDERED: FOSAMAX70 M1 PO (09:13)
[2018-10-15] MEDS ORDERED: HEMMOREX-HC25 MG R (09:17)
[2018-10-15] MEDS ORDERED: BENADRYL25 M2 PO (09:17)
[2018-10-15] MEDS ORDERED: NORCO 5-325 TA1 EACH PO (09:18)
[2018-10-15] MEDS ORDERED: TUMS200 MG PO (09:19)
[2018-10-15] MEDS ORDERED: TYLENOL325 M1 PO (09:20)
== END 2018-09-02 19:48 | disposition other institution (70) | DRG 683 ==
LOC: ED 14:20 → 5E 15:05 → EDHOLD 15:05 → 5E 15:30
PROVIDERS: Emergency Medicine; ADMIT Internal Medicine
PROC: 0DJD8ZZ Inspection of Lower Intestinal Tract, Via Natural or Artificial Opening Endoscopic (ICD-10-PCS; principal; 2018-08-30)
PROC: 0DJ08ZZ Inspection of Upper Intestinal Tract, Via Natural or Artificial Opening Endoscopic (ICD-10-PCS; principal; 2018-08-30)
DX: N17.9 Acute kidney failure, unspecified (principal); F33.0 Major depressive disorder, recurrent, mild; K59.00 Constipation, unspecified; K57.90 Diverticulosis of intestine, part unspecified, without perforation or abscess without bleeding; K29.70 Gastritis, unspecified, without bleeding; K44.9 Diaphragmatic hernia without obstruction or gangrene; M19.90 Unspecified osteoarthritis, unspecified site; E78.2 Mixed hyperlipidemia; R62.7 Adult failure to thrive; E66.9 Obesity, unspecified; K64.9 Unspecified hemorrhoids; I71.4 Abdominal aortic aneurysm, without rupture; I10 Essential (primary) hypertension; E11.9 Type 2 diabetes mellitus without complications; M19.042 Primary osteoarthritis, left hand; M19.041 Primary osteoarthritis, right hand; S30.1XXA Contusion of abdominal wall, initial encounter; W18.30XA Fall on same level, unspecified, initial encounter; Y93.89 Activity, other specified; Y92.89 Other specified places as the place of occurrence of the external cause; Y99.8 Other external cause status; Z87.440 Personal history of urinary (tract) infections; Z91.041 Radiographic dye allergy status; Z88.5 Allergy status to narcotic agent; Z86.73 Personal history of transient ischemic attack (TIA), and cerebral infarction without residual deficits; Z88.0 Allergy status to penicillin; Z88.2 Allergy status to sulfonamides; Z91.048 Other nonmedicinal substance allergy status; Z82.49 Family history of ischemic heart disease and other diseases of the circulatory system; Z90.49 Acquired absence of other specified parts of digestive tract; Z90.710 Acquired absence of both cervix and uterus; Z68.30 Body mass index [BMI] 30.0-30.9, adult

== ENCOUNTER → 2018-10-15 | Outpatient (CLI) | payer OTHER, MEDICARE ==
[~2018-10-15] MED LIST changes: +ANUSOL HC,ANUCO25 MG PO; +BENADRYL25 M2 PO; +COLACE100 MG PO; +FOSAMAX70 M1 PO; +HEMMOREX-HC25 MG R; +MIRALAX17 GM PO; +NORCO 5-325 TA1 EACH PO; +TUMS200 MG PO; +TYLENOL325 M1 PO
--- NOTE | ~2018-10-15 | PF ---
[place], [place] PULMONARY FUNCTION TEST NAME: CHRISTA VALENTINO UNIT #: [id number] ROOM: DOCTOR: ZURI GILLIS MD,LORENZO BIRTHDATE: [birth year] DOS: 10/15/2018 PULMONARY FUNCTION TEST The test was ordered by ____. HISTORY: The patient is a 82-year-old female, height of 66 inches, weight of 181 pounds, and BMI of 29.2. The study was done, preoperative assessment with symptoms of shortness of breath and productive cough. Tobacco use was noted as 3/4 pack of cigarettes per day for 46 years. SPIROMETRY: The FVC of 2.01 liters, 76% predicted value. The FEV1 1.49 liters, 75% predicted value. The ratio of FEV1/FVC is 74%. Partial improvement occurred post-bronchodilator, but did not meet the significant improvement criteria by the ____ improvement of FEV1/FVC. Mild obstructive airway pattern was noted in the flow volume loop. LUNG VOLUME: Thoracic gas volume recorded as 111%, residual volume 126%, total lung capacity 95%. RV/TLC ratio is 128%. The patient's airway resistance and passive conductance noted mildly abnormal, partial improvement post-bronchodilator. Lung diffusion recorded moderately decreased without correction of carbon monoxide and hemoglobin values. FINAL IMPRESSION: The patient's current test was suggestive of evidence of mild obstructive lung disease with moderate reduction of the lung diffusion. Postbronchodilator, FEV1 was noted as 1.64 liters as 82% predicted value. Clinical correlation would be advised. LORENZO KEATING MD CM:PFREPORT:PULMONARY FUNCTION TEST [id number] LORENZO GILLIS MD
--- NOTE | ~2018-10-15 | ST ---
[place], [place] EXERCISE STRESS TEST REPORT NAME: CHRISTA VALENTINO UNIT #: [id number] ROOM: DOCTOR: ANNMARIE JIMENEZ MD BIRTHDATE: [birth year] DOS: 10/15/2018 PHARMACOLOGICAL STRESS TEST REASON FOR TESTING: Preop cardiac evaluation. Baseline EKG normal sinus rhythm with anteroseptal ME, age undetermined and low voltage precordial leads, abnormal EKG. PROCEDURE: After informed consent was obtained, the patient received a rapid infusion of regadenoson 0.4 mg IV followed by saline flush. She experienced dizziness and dyspnea symptoms. There were no EKG changes. There was an appropriate heart rate response to the infusion. Isotope was injected 40 seconds later. IMPRESSION: Well tolerated pharmacological stress test. Please see the separate imaging report for further details of the stress test results. Annmarie Jimenez MD CM:STRESS:EXERCISE STRESS TEST REPORT [id number] ANNMARIE JIMENEZ MD
--- NOTE | 2018-10-15 10:35 | NUR ---
INFORMED CONSENT SIGNED FOR LEXISCAN STRESS TEST WITH DR. JIMENEZ. RESTING HR 69, BP 128/64. PULSE OX 98% AND LUNGS CLEAR. COMPLETED ONE MINUTE OF LEXISCAN PROTOCOL RECEIVING LEXISCAN 0.4MG OVER 10 SECONDS. NO ARRHYTHMIAS OR ST CHANGES NOTED. PT C/O HEADACHE, SOB, AND NAUSEA. LAST RECOVERY HR 85, BP 112/70. WAITING NUCLEAR SCANNING IN STABLE CONDITION.
== END | disposition home or self-care (01) ==
LOC: CARD 10-11 09:30
DX: R07.9 Chest pain, unspecified (principal)

== ENCOUNTER → 2018-11-14 | Outpatient (CLI) | payer MEDICARE ==
[2018-11-14 16:21] LABS: BILIRUBIN NEGATIVE (NEGATIVE); BLOOD NEGATIVE (NEGATIVE); CLARITY SL CLOUDY (CLEAR); COLOR YELLOW (YELLOW); GLUCOSE NEGATIVE (NEGATIVE); KETONE NEGATIVE (NEGATIVE); LEUKO ESTERASE 2+ (NEGATIVE); NITRITE NEGATIVE (NEGATIVE); SPECIFIC GRAVITY <= 1.005 (1.005-1.030); UROBILINOGEN 0.2 E.U./dl (0.2-1.0)
[2018-11-14 16:55] LABS: BACTERIA 2+; EPITHELIAL CELLS 15-20; WBC TNTC wbc/hpf (0-5)
== END | disposition home or self-care (01) ==
LOC: LAB 15:13
PROVIDERS: Surgery
DX: Z01.818 Encounter for other preprocedural examination (principal); I71.4 Abdominal aortic aneurysm, without rupture; Z79.899 Other long term (current) drug therapy

== ENCOUNTER 2019-06-14 11:27 | Emergency (ER) | payer OTHER, MEDICARE ==
[2019-06-14 11:28] VITALS: BP 146/82
[2019-06-14 12:01] LABS: BASO % 0.4 % (0.0-1.0); EOS # 0.1 10*3/uL (0.0-0.4); EOS % 1.1 % (1.0-4.0); HEMATOCRIT 38.7 % (37.0-47.0); LYMPH # 1.9 10*3/uL (1.3-4.4); LYMPH % 33.4 % (27.0-41.0); MEAN CELL VOLUME 94.4 fl (81.0-99.0); MEAN CORPUSCULAR HGB 29.3 pg (27.0-31.0); MONO # 0.5 10*3/uL (0.1-1.0); MONO % 8.5 % (3.0-9.0); NEUT # 3.2 10*3/uL (2.3-7.9); NEUT % 56.2 % (47.0-73.0); PLATELET COUNT AUTOMATED 158 10*3/uL (130-400); RED CELL DISTRI WIDTH 13.2 % (0-14.5); WHITE BLOOD COUNT 5.6 10*3/uL (4.8-10.8)
[2019-06-14 12:11] LABS: ACT PARTIAL THROMBO TIME 29.6 SECONDS (20.0-32.1); INTERNATIONAL NORM RATIO 0.9 (2.0-3.5)
[2019-06-14 12:21] LABS: ALBUMIN 3.2 gm/dl (3.1-4.5); CREATININE 1.7 mg/dL (0.55-1.02); POTASSIUM 4.2 mmol/L (3.5-5.1)
[2019-06-15 15:09] LABS: HEPATITIS B SURFACE AG Negative (Negative); HEPATITIS C AB <0.1 (0.0-0.9)
== END 2019-06-14 13:45 | disposition home or self-care (01) ==
LOC: ED 11:27
PROVIDERS: Emergency Medicine
DX: S51.812A Laceration without foreign body of left forearm, initial encounter (principal); R10.31 Right lower quadrant pain; M54.2 Cervicalgia; M54.6 Pain in thoracic spine; M54.5 Low back pain; I10 Essential (primary) hypertension; K21.9 Gastro-esophageal reflux disease without esophagitis; E78.00 Pure hypercholesterolemia, unspecified; Z91.041 Radiographic dye allergy status; Z88.0 Allergy status to penicillin; Z88.2 Allergy status to sulfonamides; Z91.048 Other nonmedicinal substance allergy status; Z88.5 Allergy status to narcotic agent; Z88.4 Allergy status to anesthetic agent; Z79.899 Other long term (current) drug therapy; Z79.82 Long term (current) use of aspirin; Z90.710 Acquired absence of both cervix and uterus; Z86.73 Personal history of transient ischemic attack (TIA), and cerebral infarction without residual deficits; Z90.49 Acquired absence of other specified parts of digestive tract; V43.52XA Car driver injured in collision with other type car in traffic accident, initial encounter; Y93.I9 Activity, other involving external motion; Y92.488 Other paved roadways as the place of occurrence of the external cause; Y99.8 Other external cause status

== ENCOUNTER 2021-01-21 11:09 | Emergency (ER) | payer MEDICARE ==
[~2021-01-21] VITALS: Ht 162.5 cm; Wt 83.5 kg
[2021-01-21 11:23] VITALS: BP 158/79
== END 2021-01-21 15:37 | disposition home or self-care (01) ==
LOC: ED 11:09
DX: S00.93XA Contusion of unspecified part of head, initial encounter (principal); S69.92XA Unspecified injury of left wrist, hand and finger(s), initial encounter; Z91.040 Latex allergy status; Z88.0 Allergy status to penicillin; Z88.2 Allergy status to sulfonamides; Z91.048 Other nonmedicinal substance allergy status; Z88.5 Allergy status to narcotic agent; Z88.4 Allergy status to anesthetic agent; Z79.899 Other long term (current) drug therapy; Z79.82 Long term (current) use of aspirin; Z90.711 Acquired absence of uterus with remaining cervical stump; Z98.890 Other specified postprocedural states; W22.8XXA Striking against or struck by other objects, initial encounter; Y93.89 Activity, other specified; Y92.89 Other specified places as the place of occurrence of the external cause; Y99.8 Other external cause status

== ENCOUNTER 2021-12-10 15:49 | Inpatient (IN) | payer MEDICARE ==
[~2021-12-10] VITALS: Ht 167.6 cm; Wt 71.9 kg
[2021-12-10 15:55] VITALS: BP 127/82
[2021-12-10 18:47] LABS: BILIRUBIN Negative (Negative); BLOOD Negative (Negative); CLARITY Cloudy (Clear); COLOR Yellow (Yellow); GLUCOSE Negative (Negative); KETONE 1+ (Negative); LEUKO ESTERASE 3+ (Negative); NITRITE Negative (Negative); PH 5.5 (4.5-8.0)
[2021-12-10 18:47] LABS: BASO % 0.2 % (0.0-1.0); EOS # 0.1 10*3/uL (0.0-0.4); EOS % 0.9 % (1.0-4.0); HEMATOCRIT 40.5 % (37.0-47.0); LYMPH # 2.5 10*3/uL (1.3-4.4); LYMPH % 26.6 % (27.0-41.0); MEAN CELL VOLUME 95.7 fl (81.0-99.0); MEAN CORPUSCULAR HGB CONC 31.4 g/dl (33.0-37.0); MEAN PLATELET VOLUME 10.2 fl (9.6-12.3); MONO # 0.8 10*3/uL (0.1-1.0); MONO % 8.1 % (3.0-9.0); NEUT # 5.9 10*3/uL (2.3-7.9); NEUT % 63.9 % (47.0-73.0); PLATELET COUNT AUTOMATED 194 10*3/uL (130-400); RED BLOOD COUNT 4.23 10*6/uL (4.10-5.10); WHITE BLOOD COUNT 9.3 10*3/uL (4.8-10.8)
[2021-12-10 19:03] LABS: CREATININE 2.01 mg/dL (0.55-1.02); POTASSIUM 4.2 mmol/L (3.5-5.1)
[2021-12-10 19:05] LABS: BACTERIA 1+; MUCOUS TRACE; WBC TNTC wbc/hpf (0-5)
[2021-12-10 20:45] VITALS: BP 163/84
[2021-12-11] VITALS: BP 190/63
[2021-12-11 06:03] LABS: CREATININE 1.66 mg/dL (0.55-1.02); POTASSIUM 4.1 mmol/L (3.5-5.1)
[2021-12-11 06:20] LABS: BASO % 0.3 % (0.0-1.0); EOS # 0.1 10*3/uL (0.0-0.4); EOS % 1.7 % (1.0-4.0); HEMATOCRIT 31.4 % (37.0-47.0); LYMPH # 2.3 10*3/uL (1.3-4.4); LYMPH % 38.2 % (27.0-41.0); MEAN CELL VOLUME 95.2 fl (81.0-99.0); MEAN CORPUSCULAR HGB 30.3 pg (27.0-31.0); MEAN CORPUSCULAR HGB CONC 31.8 g/dl (33.0-37.0); MEAN PLATELET VOLUME 11.1 fl (9.6-12.3); MONO # 0.6 10*3/uL (0.1-1.0); NEUT % 49.6 % (47.0-73.0); PLATELET COUNT AUTOMATED 136 10*3/uL (130-400); RED CELL DISTRI WIDTH 12.9 % (0-14.5)
[2021-12-11 08:00] VITALS: BP 143/77
[2021-12-11 12:00] VITALS: BP 136/63
[2021-12-11 16:00] VITALS: BP 145/58
[2021-12-11 20:00] VITALS: BP 125/61
[2021-12-12] VITALS: BP 127/73
[2021-12-12 05:40] LABS: CREATININE 1.51 mg/dL (0.55-1.02); POTASSIUM 3.9 mmol/L (3.5-5.1)
[2021-12-12 06:31] LABS: BASO % 0.5 % (0.0-1.0); EOS # 0.1 10*3/uL (0.0-0.4); EOS % 2.1 % (1.0-4.0); HEMATOCRIT 32.9 % (37.0-47.0); LYMPH # 1.9 10*3/uL (1.3-4.4); LYMPH % 45.8 % (27.0-41.0); MEAN CELL VOLUME 96.5 fl (81.0-99.0); MEAN CORPUSCULAR HGB 29.3 pg (27.0-31.0); MEAN CORPUSCULAR HGB CONC 30.4 g/dl (33.0-37.0); MEAN PLATELET VOLUME 11.2 fl (9.6-12.3); MONO # 0.4 10*3/uL (0.1-1.0); MONO % 9.7 % (3.0-9.0); NEUT # 1.8 10*3/uL (2.3-7.9); NEUT % 41.7 % (47.0-73.0); PLATELET COUNT AUTOMATED 104 10*3/uL (130-400); RED BLOOD COUNT 3.41 10*6/uL (4.10-5.10); WHITE BLOOD COUNT 4.2 10*3/uL (4.8-10.8)
[2021-12-12 08:00] VITALS: BP 172/50
[2021-12-12 12:00] VITALS: BP 120/41
[2021-12-12 16:00] VITALS: BP 144/55
[2021-12-12 21:35] VITALS: BP 151/56
[2021-12-13] VITALS: BP 166/75
[2021-12-13 05:50] LABS: CREATININE 1.47 mg/dL (0.55-1.02); POTASSIUM 4.1 mmol/L (3.5-5.1)
[2021-12-13 06:15] LABS: BASO % 0.5 % (0.0-1.0); EOS # 0.2 10*3/uL (0.0-0.4); EOS % 3.9 % (1.0-4.0); HEMATOCRIT 30.8 % (37.0-47.0); LYMPH # 1.6 10*3/uL (1.3-4.4); MEAN CELL VOLUME 95.7 fl (81.0-99.0); MEAN CORPUSCULAR HGB 29.8 pg (27.0-31.0); MEAN CORPUSCULAR HGB CONC 31.2 g/dl (33.0-37.0); MEAN PLATELET VOLUME 11.3 fl (9.6-12.3); MONO # 0.4 10*3/uL (0.1-1.0); NEUT # 2.1 10*3/uL (2.3-7.9); NEUT % 48.4 % (47.0-73.0); PLATELET COUNT AUTOMATED 123 10*3/uL (130-400); RED BLOOD COUNT 3.22 10*6/uL (4.10-5.10); RED CELL DISTRI WIDTH 12.8 % (0-14.5); WHITE BLOOD COUNT 4.3 10*3/uL (4.8-10.8)
[2021-12-13 08:00] VITALS: BP 141/55
[2021-12-13 12:00] VITALS: BP 136/84
== END 2021-12-13 15:23 | disposition home or self-care (01) | DRG 689 ==
LOC: ED 15:49 → EDHOLD 19:36 → 4E 19:36
PROVIDERS: Emergency Medicine; ADMIT Internal Medicine; ATTEND Internal Medicine
DX: N39.0 Urinary tract infection, site not specified (principal); G93.41 Metabolic encephalopathy; N17.0 Acute kidney failure with tubular necrosis; F33.0 Major depressive disorder, recurrent, mild; E86.0 Dehydration; N18.9 Chronic kidney disease, unspecified; E11.22 Type 2 diabetes mellitus with diabetic chronic kidney disease; I12.9 Hypertensive chronic kidney disease with stage 1 through stage 4 chronic kidney disease, or unspecified chronic kidney disease; K57.90 Diverticulosis of intestine, part unspecified, without perforation or abscess without bleeding; F51.01 Primary insomnia; I71.4 Abdominal aortic aneurysm, without rupture; R62.7 Adult failure to thrive; M15.9 Polyosteoarthritis, unspecified; E78.2 Mixed hyperlipidemia; Z86.73 Personal history of transient ischemic attack (TIA), and cerebral infarction without residual deficits; Z88.0 Allergy status to penicillin; Z88.2 Allergy status to sulfonamides; Z88.8 Allergy status to other drugs, medicaments and biological substances; Z91.041 Radiographic dye allergy status; Z79.899 Other long term (current) drug therapy; Z82.49 Family history of ischemic heart disease and other diseases of the circulatory system

== ENCOUNTER 2022-02-09 15:18 | Emergency (ER) | payer MEDICARE ==
[~2022-02-09] VITALS: Wt 70.8 kg
[2022-02-09 15:41] VITALS: BP 118/82
[2022-02-09 17:04] LABS: BASO % 0.5 % (0.0-1.0); EOS # 0.1 10*3/uL (0.0-0.4); EOS % 1.3 % (1.0-4.0); HEMATOCRIT 38.8 % (37.0-47.0); LYMPH # 1.9 10*3/uL (1.3-4.4); LYMPH % 29.1 % (27.0-41.0); MEAN CELL VOLUME 97.5 fl (81.0-99.0); MEAN CORPUSCULAR HGB 29.6 pg (27.0-31.0); MEAN CORPUSCULAR HGB CONC 30.4 g/dl (33.0-37.0); MEAN PLATELET VOLUME 10.3 fl (9.6-12.3); MONO # 0.6 10*3/uL (0.1-1.0); MONO % 8.8 % (3.0-9.0); NEUT # 3.8 10*3/uL (2.3-7.9); NEUT % 60.1 % (47.0-73.0); PLATELET COUNT AUTOMATED 141 10*3/uL (130-400); RED BLOOD COUNT 3.98 10*6/uL (4.10-5.10); RED CELL DISTRI WIDTH 12.6 % (0-14.5); WHITE BLOOD COUNT 6.4 10*3/uL (4.8-10.8)
[2022-02-09 17:23] LABS: BILIRUBIN Negative (Negative); BLOOD Negative (Negative); CLARITY Clear (Clear); COLOR Yellow (Yellow); GLUCOSE Negative (Negative); KETONE Negative (Negative); LEUKO ESTERASE 2+ (Negative); NITRITE Negative (Negative); PH 6.5 (4.5-8.0); SPECIFIC GRAVITY <= 1.005 (1.001-1.030); UROBILINOGEN 0.2 E.U./dl (0.0-1.0)
[2022-02-09 17:31] LABS: CREATININE 1.91 mg/dL (0.55-1.02); POTASSIUM 4.4 mmol/L (3.5-5.1); TOTAL PROTEIN 6.8 gm/dL (6.4-8.2)
[2022-02-09 17:44] LABS: BACTERIA 3+; WBC 21-30 wbc/hpf (0-5)
[2022-02-09] MEDS ORDERED: PYRIDIUM200 M1 PO (20:12)
[2022-02-09] MEDS ORDERED: CIPRO500 MG PO (20:12)
== END 2022-02-09 20:29 | disposition home or self-care (01) ==
LOC: ED 15:18
PROVIDERS: Physician Assistant
DX: N39.0 Urinary tract infection, site not specified (principal); Z90.710 Acquired absence of both cervix and uterus; Z90.49 Acquired absence of other specified parts of digestive tract; Z91.041 Radiographic dye allergy status; Z88.0 Allergy status to penicillin; Z88.2 Allergy status to sulfonamides

== ENCOUNTER → 2022-05-26 | Outpatient (CLI) | payer MEDICARE ==
[~2022-05-26] MED LIST changes: +PYRIDIUM200 M1 PO
[2022-05-26 14:07] LABS: BASO % 0.5 % (0.0-1.0); EOS # 0.1 10*3/uL (0.0-0.4); EOS % 1.2 % (1.0-4.0); HEMATOCRIT 38.4 % (37.0-47.0); LYMPH # 2.1 10*3/uL (1.3-4.4); LYMPH % 26.8 % (27.0-41.0); MEAN CELL VOLUME 95.5 fl (81.0-99.0); MEAN CORPUSCULAR HGB 29.6 pg (27.0-31.0); MEAN PLATELET VOLUME 10.3 fl (9.6-12.3); MONO # 0.6 10*3/uL (0.1-1.0); MONO % 7.3 % (3.0-9.0); NEUT % 63.9 % (47.0-73.0); PLATELET COUNT AUTOMATED 162 10*3/uL (130-400); RED BLOOD COUNT 4.02 10*6/uL (4.10-5.10); RED CELL DISTRI WIDTH 13.6 % (0-14.5); WHITE BLOOD COUNT 7.8 10*3/uL (4.8-10.8)
[2022-05-26 14:34] LABS: CREATININE 2.19 mg/dL (0.55-1.02); POTASSIUM 4.2 mmol/L (3.5-5.1)
== END | disposition home or self-care (01) ==
LOC: CT 13:45
PROVIDERS: ATTEND Internal Medicine
DX: K57.32 Diverticulitis of large intestine without perforation or abscess without bleeding (principal); I25.10 Atherosclerotic heart disease of native coronary artery without angina pectoris; N26.1 Atrophy of kidney (terminal); I70.0 Atherosclerosis of aorta; R79.89 Other specified abnormal findings of blood chemistry; R53.81 Other malaise